=== PATIENT | female | born 1960 | race Caucasian/White ===

== ENCOUNTER 2018-03-08 13:39 | Emergency (ER) | payer OTHER ==
[~2018-03-08] VITALS: Ht 167.6 cm; Wt 68.0 kg
[~2018-03-08 13:39] MED LIST: CIPRO500 M1 PO; PYRIDIUM100 M1 PO
--- NOTE | 2018-03-08 15:02 | ED GI/GU/ABDOMINAL COMPLAINT ---
See Addendum History of Present Illness General Chief Complaint: Female Urogenital Problems Stated Complaint: PER PT "IM BLEEDING FROM MY BLADDER" FLANK PAIN Source: patient Exam Limitations: no limitations Vital Signs & Intake/Output Vital Signs & Intake/Output Vital Signs Date Time Temp Pulse Resp B/P B/P Pulse O2 O2 Flow FiO2 Mean Ox Delivery Rate 03/08 1542 98.1 74 18 140/81 98 Room Air Room Air 03/08 1346 97.0 88 18 178/81 98 Room Air Allergies Coded Allergies: erythromycin base (UNKNOWN 06/17/17) Reconcile Medications Ciprofloxacin HCl (Cipro) 500 MG TABLET 1 TAB PO BID uti/travelers diarrhea Ciprofloxacin HCl (Cipro) 500 MG TABLET 1 TAB PO BID UTI Phenazopyridine HCl (Pyridium) 100 MG TABLET 1 TAB PO TID PRN dysuria Phenazopyridine HCl (Pyridium) 100 MG TABLET 1 TAB PO TID PRN DYSURIA Triage Note: PT TO ER C/C RIGHT FLANK PAIN AND HEMATURIA X 1 DAY. DENIES N/V/D Triage Nurses Notes Reviewed? yes LMP (ages 10-50): post menopausal, unknown ? N Is pt currently ? No Onset: Abrupt Duration: day(s): (1), changing over time, continues in ED Timing: single episode today Quality/Severity: cramping Severity Numbers: 8 Location: right flank Radiation: back Activities at Onset: none Prior Abdominal Problems: similar symptoms Past Sexual History: Unobtainable at this time No Modifying Factors: none Modifying Factors: Worsens With: movement, palpation. Associated Symptoms: urinary frequency, DYSURIA HEMATURIA FLANK PAIN HPI: 58-year-old female past medical history of HLD, anxiety presents for evaluation of hematuria frequency urgency dysuria and right flank pain. Patient states that started yesterday and have been persistent. Pain is located in the right flank and right lower back. Described as cramping it is intermittently worse. She has been taking Pyridium with some improvement. No nausea vomiting fever vaginal discharge or vaginal bleeding chest pain shortness of breath or any other associated symptoms. She did have a similar symptom a couple years ago and was diagnosed with a "bacterial infection". No history of kidney stones. No difficulty urinating. (Vince Phillip) Past History Travel History Traveled to [place] past 21 day No Medical History Any Pertinent Medical History? see below for history Cardiovascular: hyperlipidemia Psychiatric: anxiety Surgical History Surgical History: none Psychosocial History What is your primary language Kyrgyz Tobacco Use: Current Not Daily Family History Hx Contributory? No (Vince Phillip) Review of Systems Review of Systems Constitutional: Reports: no symptoms. EENTM: Reports: no symptoms. Respiratory: Reports: no symptoms. Cardiovascular: Reports: no symptoms. GI: Reports: see HPI, abdominal pain. Genitourinary: Reports: see HPI, dysuria, frequency, hematuria, urgency. Musculoskeletal: Reports: see HPI, back pain. Skin: Reports: no symptoms. Neurological/Psychological: Reports: no symptoms. Hematologic/Endocrine: Reports: no symptoms. Immunologic/Allergic: Reports: no symptoms. All Other Systems: Reviewed and Negative (Vince Phillip) Physical Exam Physical Exam General Appearance: well developed/nourished, no apparent distress, alert, awake Head: atraumatic, normal appearance Eyes: Bilateral: normal appearance, PERRL, EOMI, normal inspection. Ears, Nose, Throat, Mouth: moist mucous membrane Neck: normal inspection, supple, full range of motion Respiratory: normal breath sounds, chest non-tender, no respiratory distress, lungs clear Cardiovascular: regular rate/rhythm, normal peripheral pulses Peripheral Pulses: 2+ radial (R), 2+ radial (L) Gastrointestinal: normal bowel sounds, soft, no organomegaly, tenderness (RT FLANK ) Back: normal inspection, normal range of motion, RIGHT-SIDED LUMBAR PARASPINOUS MUSCLES AND PALPATION. nO MIDLINE PAIN OR STEP-OFFS OR DEFORMITIES Extremities: normal range of motion, evidence of injury Neurologic/Psych: no motor/sensory deficits, awake, alert, oriented x 3, normal gait Skin: intact, normal color, warm/dry Core Measures ACS in differential dx? No Sepsis Present: No Sepsis Focused Exam Completed? No (Vince Phillip) Progress Differential Diagnosis: appendicitis, biliary colic, cholecystitis, diverticulitis, hepatitis, ischemic bowel, inflamm bowel dis, kidney stone, pancreatitis, SBO, UTI/pyelo Plan of Care: Orders Procedure Date/time Status Add-on Test (ER Only) 03/08 1446 Active TROPONIN LEVEL 03/08 1446 Complete PARTIAL THROMBOPLASTIN TIME 03/08 1446 Complete PROTHROMBIN TIME 03/08 1446 Complete COMPREHENSIVE METABOLIC PANEL 03/08 1446 Complete CBC WITHOUT DIFFERENTIAL 03/08 1446 Complete CULTURE,URINE 03/08 1347 Active URINALYSIS 03/08 134 Complete Laboratory Tests 03/08/18 1510: Anion Gap 12, Estimated GFR > 60, BUN/Creatinine Ratio 18.6, Glucose 92, Calcium 9.5, Total Bilirubin 0.6, AST 25, ALT 35, Alkaline Phosphatase 68, Troponin I < 0.01, Total Protein 8.1, Albumin 4.6, Globulin 3.5, Albumin/Globulin Ratio 1.3, PT 10.7, INR 0.98, APTT 30, CBC w Diff NO MAN DIFF REQ, RBC 4.91, MCV 88.8, MCH 29.9, MCHC 33.6, RDW 13.3, MPV 9.2, Gran % 73.6, Lymphocytes % 18.3 L, Monocytes % 7.1, Eosinophils % 0.7, Basophils % 0.3, Absolute Granulocytes 9.4 H, Absolute Lymphocytes 2.3, Absolute Monocytes 0.9 H, Absolute Eosinophils 0.1 , Absolute Basophils 0 03/08/18 1300: Urine Color BLDY H, Urine Clarity CLDY H, Urine pH 5.0, Ur Specific Linneus 1.020, Urine Protein >=300 H, Urine Ketones TRACE H, Urine Nitrite POS H, Urine Bilirubin NEG@ICTO, Urine Urobilinogen 2.0 H, Ur Leukocyte Esterase MOD H, Ur Microscopic SEDIMENT EXAMINED, Urine RBC PACKD H, Urine WBC 1-3 H, Urine Bacteria FEW H, Micro UA Comment , Urine Hemoglobin LARGE H, Urine Glucose NEG Microbiology 03/08 1347 URINE ROUT: Urine Culture - RECD Patient seen and evaluated. She is here with frequency urgency dysuria and hematuria. She also has right flank pain. Vital signs are stable. Urine is showing large amount of blood and signs of infection culture sent. Labs and CT scan ordered patient medicated with Toradol. Work shows a mildly elevated white blood cell count of 12.8. Remaining blood work is within normal limits. CT scan SHOWS evidence of acute cystitis. Patient be treated with Cipro. Advised her restaurant plenty of fluids continue Tylenol or Profen as needed Pyridium as needed. Follow up on urine culture discussed return cautioned in detail. Patient agrees the plan Diagnostic Imaging: Viewed by Me: CT Scan. Discussed w/RAD: CT Scan. Radiology Impression: ATIENT: NGOZI GUTIERREZ PRESENT AGE: 58 PATIENT ACCOUNT NO: [id number] : 58 LOCATION: [facility] ORDERING PHYSICIAN: Vince ARRIOLA SERVICE DATE: 03/08/18 EXAM TYPE: CAT - CT ABD & PELVIS W/O IV CONTRAS EXAMINATION: CT ABDOMEN AND PELVIS WITHOUT CONTRAST CLINICAL INFORMATION: Renal stone. COMPARISON: 12/28/2011 ultrasound. TECHNIQUE: Multidetector volumetric imaging was performed from the superior aspect of the liver through the pubic symphysis. Sagittal and coronal reformatted images were obtained on the technologist's workstation. DLP: 277.95 mGy-cm FINDINGS: LUNG BASES: The visualized lung bases are unremarkable. LIVER, GALLBLADDER, AND BILIARY TREE: The liver is normal in size, shape, and attenuation. No biliary ductal dilatation is present. There is a 1.8 cm fluid density lesion in segment 4b of the liver, likely a hepatic cyst. Axial image 26/94 from series 2. There is a 1.5 cm indistinct hypodensity in the left lobe of the liver, adjacent to the branching point of the left portal vein, as seen on axial image 17/94 from series 2. It could be artifactual. However, possibility of a hypodense hepatic lesion is not excluded. The gallbladder is partially distended with no evidence of radiopaque gallstones, gallbladder wall thickening, or obvious pericholecystic inflammatory changes. PANCREAS: Unremarkable. SPLEEN: Unremarkable. ADRENAL GLANDS: Unremarkable. KIDNEYS AND URETERS: The kidneys are normal in size, shape, and attenuation. No hydronephrosis, hydroureter, or calculi seen. No perinephric stranding. BLADDER: The urinary bladder is partially full. There is mild circumferential thickening of the bladder wall with 0.8 cm single layer thickness. It is more than expected for the volume of the bladder and can represent cystitis. Clinical and lab correlation is suggested. No bladder stone. GASTROINTESTINAL TRACT: There is a moderate-sized hiatal hernia. The small and large bowel are not dilated. Mild diverticular disease of the sigmoid colon noted. No acute diverticulitis. The appendix is not clearly seen; however, there are no inflammatory changes in the expected position of the appendix to suggest acute appendicitis. ABDOMINAL WALL: No significant hernia is appreciated. LYMPH NODES: Normal. VASCULAR: Unremarkable. PELVIC VISCERA: The uterus and adnexa are unremarkable. OSSEOUS STRUCTURES: There is narrowing of L4-L5 intervertebral disc space with sclerotic changes of adjacent endplates. Facet arthropathy at this level also noted. There is grade 1 anterolisthesis of L4 on L5. IMPRESSION: No renal stone. Mild circumferential thickening of the bladder wall can represent acute cystitis. Clinical and lab correlation is suggested. Mild diverticular disease of colon. No evidence of acute diverticulitis. A 1.8 cm hepatic cyst in segment 4b. A 1.5 cm indistinct hypodensity in the left lobe of the liver, cannot be further evaluated by this exam. It could be artifactual and represent summation of shadows, however further evaluation by ultrasound can be considered if clinically indicated. L4- L5 discopathy and anterior listhesis of L4 on L5. DICTATED BY: Dillon Montano MD DATE/TIME DICTATED:03/08/181609 FULL SERVICE SUPERVISOR:CHANTAL DATE/TIME TRANSCRIBED:03/08/181609 CONFIDENTIAL, DO NOT COPY WITHOUT APPROPRIATE AUTHORIZATION. Initial ED EKG: none (En ARRIOLA,Vince) Departure Departure Disposition: HOME OR SELF CARE Condition: Stable Clinical Impression Primary Impression: Acute cystitis Qualifiers: Hematuria presence: with hematuria Qualified Code: N30.01 - Acute cystitis with hematuria Referrals: Franck Pascal MD (PCP/Family) Additional Instructions: Rest and drink plenty of fluids. Take antibiotics as directed for the full course. Pyridium as needed for painful urination Tylenol or ibuprofen for pain. Make a follow-up with YOUr primary care doctor to review all results of today's visit monitor symptoms return with any concerns. Please go over all results of today's visit with your primary care doctor. Contact your primary care doctor to let them know you were here in the emergency room. There may be nonspecific findings which may not be related to your visit today here in the emergency room but may require further evaluation and chronic monitoring by your primary care doctor. If you had a laceration today the chance of foreign body always remains. You should follow-up with your primary care doctor for recheck in 3-5 days for a wound check. If you had an x-ray done there is a chance that a fracture could have been missed on initial read and you should follow-up with your primary care doctor for repeat x-rays if symptoms persist. If your blood pressure was elevated here in the emergency room please have rechecked by her primary care doctor within the next 48 hours by your primary care doctor. If you were prescribed a narcotic here in the emergency room or any type of controlled substances you're not allowed to drive while taking this medication or operate any type of heavy machinery. Narcotics can make you feel lightheaded dizziness nausea and can cause constipation. You may need to brain picker a stool softener. Thank you for choosing [facility] emergency room. Please return to the emergency room immediately if you have any other concerns worsening of symptoms. Departure Forms: Customer Survey General Discharge Information Prescriptions: Current Visit Scripts Phenazopyridine HCl (Pyridium) 1 TAB PO TID PRN DYSURIA #9 TAB Ciprofloxacin HCl (Cipro) 1 TAB PO BID #14 TAB (Vince Phillip) PA/ROLLWAY WORKER Co-Sign Statement Statement: ED Attending supervision documentation- [] I saw and evaluated the patient. I have also reviewed all the pertinent lab results and diagnostic results. I agree with the findings and the plan of care as documented in the PA's/ROLLWAY WORKER's documentation. [x] I have reviewed the ED Record and agree with the PA's/ROLLWAY WORKER's documentation. [] Additions or exceptions (if any) to the PAs/ROLLWAY WORKER's note and plan are summarized below: [] (Michael Tejada DO)
[2018-03-08 15:42] VITALS: BP 140/81
[2018-03-08 15:42] LABS: ABSOLUTE BASOPHIL COUNT 0 /CUMM (0.0-0.2); ABSOLUTE EOSINOPHIL COUNT 0.1 /CUMM (0.0-0.7); ABSOLUTE GRANULOCYTE CT 9.4 /CUMM (1.4-6.5); ABSOLUTE LYMPH COUNT 2.3 /CUMM (1.2-3.4); ABSOLUTE MONOCYTE COUNT 0.9 /CUMM (0.10-0.60); BASOPHIL % 0.3 % (0.0-2.0); EOSINOPHIL % 0.7 % (0-5); GRANULOCYTE % 73.6 % (42.2-75.2); HEMATOCRIT 43.6 % (37-47); MEAN CORPUSCULAR HGB 29.9 PG (27.0-31.0); MEAN CORPUSCULAR HGB CONC 33.6 G/DL (33.0-37.0); MEAN CORPUSCULAR VOLUME 88.8 FL (81.0-99.0); MEAN PLATELET VOLUME 9.2 FL (7.4-10.4); PLATELET COUNT 239 /CUMM (130-400); RBC DISTRIBUTION WIDTH 13.3 % (11.5-14.5); RED BLOOD CELL CT 4.91 /CUMM (4.20-5.40); WHITE BLOOD CELL COUNT 12.8 /CUMM (4.8-10.8)
[2018-03-08 15:58] LABS: PT 10.7 SEC (9.4-12.5); PTT 30 SEC (25-37)
--- NOTE | 2018-03-08 16:54 | CT SCAN REPORT ---
EXAMINATION: CT ABDOMEN AND PELVIS WITHOUT CONTRAST CLINICAL INFORMATION: Renal stone. COMPARISON: 12/28/2011 ultrasound. TECHNIQUE: Multidetector volumetric imaging was performed from the superior aspect of the liver through the pubic symphysis. Sagittal and coronal reformatted images were obtained on the technologist's workstation. DLP: 277.95 mGy-cm FINDINGS: LUNG BASES: The visualized lung bases are unremarkable. LIVER, GALLBLADDER, AND BILIARY TREE: The liver is normal in size, shape, and attenuation. No biliary ductal dilatation is present. There is a 1.8 cm fluid density lesion in segment 4b of the liver, likely a hepatic cyst. Axial image 26/94 from series 2. There is a 1.5 cm indistinct hypodensity in the left lobe of the liver, adjacent to the branching point of the left portal vein, as seen on axial image 17/94 from series 2. It could be artifactual. However, possibility of a hypodense hepatic lesion is not excluded. The gallbladder is partially distended with no evidence of radiopaque gallstones, gallbladder wall thickening, or obvious pericholecystic inflammatory changes. PANCREAS: Unremarkable. SPLEEN: Unremarkable. ADRENAL GLANDS: Unremarkable. KIDNEYS AND URETERS: The kidneys are normal in size, shape, and attenuation. No hydronephrosis, hydroureter, or calculi seen. No perinephric stranding. BLADDER: The urinary bladder is partially full. There is mild circumferential thickening of the bladder wall with 0.8 cm single layer thickness. It is more than expected for the volume of the bladder and can represent cystitis. Clinical and lab correlation is suggested. No bladder stone. GASTROINTESTINAL TRACT: There is a moderate-sized hiatal hernia. The small and large bowel are not dilated. Mild diverticular disease of the sigmoid colon noted. No acute diverticulitis. The appendix is not clearly seen; however, there are no inflammatory changes in the expected position of the appendix to suggest acute appendicitis. ABDOMINAL WALL: No significant hernia is appreciated. LYMPH NODES: Normal. VASCULAR: Unremarkable. PELVIC VISCERA: The uterus and adnexa are unremarkable. OSSEOUS STRUCTURES: There is narrowing of L4-L5 intervertebral disc space with sclerotic changes of adjacent endplates. Facet arthropathy at this level also noted. There is grade 1 anterolisthesis of L4 on L5. IMPRESSION: No renal stone. Mild circumferential thickening of the bladder wall can represent acute cystitis. Clinical and lab correlation is suggested. Mild diverticular disease of colon. No evidence of acute diverticulitis. A 1.8 cm hepatic cyst in segment 4b. A 1.5 cm indistinct hypodensity in the left lobe of the liver, cannot be further evaluated by this exam. It could be artifactual and represent summation of shadows, however further evaluation by ultrasound can be considered if clinically indicated. L4-L5 discopathy and anterior listhesis of L4 on L5.
[2018-03-08] MEDS ORDERED: PYRIDIUM100 M1 PO (17:03)
[2018-03-08] MEDS ORDERED: CIPRO500 M1 PO (17:03)
== END 2018-03-08 17:10 ==
LOC: ERH 13:39
PROVIDERS: Physician Assistant Medical
DX: N30.00 Acute cystitis without hematuria (principal)
CPT/HCPCS: 74176; 81001; 87086; 96372; J1885